=== PATIENT | female | born 1945 ===

== ENCOUNTER 2017-05-12 15:06 | Inpatient (IN) | payer MEDICARE ==
[2017-05-12 15:39] VITALS: BMI 38.0
[2017-05-12 17:23] LABS: BASO # 0.02 K/mm3 (0.0-2.0); BASO % 0.3 % (0.0-3.0); EOS # 0.1 (0.0-0.7); EOS % 1.8 % (1.5-5.0); GRAN # 4.35 (1.4-6.5); GRAN % 58.8 % (50.0-68.0); HEMOGLOBIN 11.8 g/dL (12.0-16.0); LYMPH # 2.4 (1.2-3.4); LYMPH % 32.5 % (22.0-35.0); MEAN CELL VOLUME 89.1 fl (80.0-105.0); MEAN CORPUSCULAR HEMOGLOBIN 28.6 pg (25.0-35.0); MEAN CORPUSCULAR HGB CONC 32.2 g/dl (31.0-37.0); MEAN PLATELET VOLUME 10.6 fl (7.0-11.0); MONO # 0.5 (0.1-0.6); MONO % 6.6 % (1.0-6.0); RBC 4.12 10^6/uL (3.5-6.1); RED CELL DISTRIBUTION WIDTH 13.2 % (11.5-14.5); URINE APPEARANCE CLEAR (CLEAR); URINE BILIRUBIN NEGATIVE (NEGATIVE); URINE BLOOD NEGATIVE (NEGATIVE); URINE COLOR YELLOW (YELLOW); URINE GLUCOSE (UA) NEGATIVE (NEGATIVE); URINE LEUKOCYTE ESTERASE SMALL Leu/uL (NEGATIVE); URINE PROTEIN NEGATIVE mg/dL (<30 mg/dL); URINE UROBILINOGEN 0.2 E.U./dL (<1 E.U./dL); WHITE BLOOD COUNT 7.4 10^3/ul (4.5-11.0)
[2017-05-12] MEDS ORDERED: Morphine 5 MG/ML SYRINGE IVP STA (17:29)
[2017-05-12] MEDS ORDERED: MethylPREDNISolone 40 mg Vial IVP STA (17:29)
[2017-05-12 17:31] LABS: ALB/GLOB RATIO 1.3 (1.1-1.8); ALBUMIN 4.2 g/dL (3.0-4.8); ALT/SGPT 33 U/L (7-56); AST/SGOT 24 U/L (14-36); BLOOD UREA NITROGEN 23 mg/dL (7-21); CALCIUM 10.1 mg/dL (8.4-10.5); GFR AFRICAN-AMERICAN > 60; GFR NON-AFRICAN AMERICAN > 60
--- NOTE | 2017-05-12 17:33 | ED PDOC ---
Arrival/HPI - General Chief Complaint: Back Pain Time Seen by Provider: 05/12/17 16:02 Historian: Patient - History of Present Illness Narrative History of Present Illness (Text): 05/12/17 17:41 71yo female with PMHx of hypothyroid, hypertension and diabetes who was referred to ED by Dr. Pearl for admission. The daughter by the bedside states patient started having neck pain a month ago and was seen at a hospital in [facility]. she presented a copy of the cervical spine CT result that showed Lytic lesion and pathologic fracture of C4. Patient have on a cervical spine. She was referred to ED by Dr. Pearl for admission secondary to the CT findings. Pt denies any focal weakness, paresthesia, headache, dizziness, any other complaint. Past Medical History - Provider Review Nursing Documentation Reviewed: Yes - Cardiac Hx Hypertension: Yes - Pulmonary Hx Respiratory Disorders: No - Neurological Hx Neurological Disorder: No - HEENT Hx HEENT Disorder: No - Renal Hx Renal Disorder: No - Endocrine/Metabolic Hx Diabetes Mellitus Type 2: Yes Hx Hypothyroidism: Yes - Hematological/Oncological Hx Blood Disorders: No - Integumentary Hx Dermatological Disorder: No - Musculoskeletal/Rheumatological Hx Musculoskeletal Disorders: No - Gastrointestinal Hx Gastrointestinal Disorders: No - Genitourinary/Gynecological Hx Genitourinary Disorders: No - Psychiatric Hx Psychophysiologic Disorder: No Hx Substance Use: No - Surgical History Hx Section: Yes Hx Cholecystectomy: Yes Family/Social History - Physician Review Nursing Documentation Reviewed: Yes Family/Social History: Unknown Family HX Smoking Status: Never Smoked Hx Alcohol Use: No Hx Substance Use: No Allergies/Home Meds Allergies/Adverse Reactions: Allergies No Known Allergies Allergy (Verified 05/12/17 15:39) Home Medications: Home Meds Medication Instructions Recorded Confirmed GlipiZIDE [Glucotrol] 5 mg PO DAILY 05/12/17 05/12/17 Levothyroxine [Synthroid] 100 mcg PO DAILY 05/12/17 05/12/17 Losartan [Cozaar] 100 mg PO DAILY 05/12/17 05/12/17 Metoprolol Succinate [Toprol Xl] 50 mg PO DAILY 05/12/17 05/12/17 Review of Systems - Physician Review All systems were reviewed & negative as marked: Yes - Review of Systems Constitutional: Normal Eyes: Normal ENT: Normal Respiratory: Normal Cardiovascular: Normal Gastrointestinal: Normal Genitourinary Female: Normal Musculoskeletal: Neck Pain Skin: Normal Neurological: Normal Endocrine: Normal Hemo/Lymphatic: Normal Psychiatric: Normal Physical Exam Vital Signs Reviewed: Yes Vital Signs Temp Pulse Resp BP Pulse Ox 05/12/17 19:14 68 17 161/70 H 99 05/12/17 17:30 64 18 158/72 H 100 05/12/17 16:55 65 18 168/65 H 100 05/12/17 15:43 98.0 F 67 20 172/61 H 99 05/12/17 15:39 98.0 F 67 19 172/61 H 100 Temperature: Afebrile Blood Pressure: Normal Pulse: Regular Respiratory Rate: Normal Appearance: Positive for: Well-Appearing, Non-Toxic, Comfortable Pain Distress: None Mental Status: Positive for: Alert and Oriented X 3 - Systems Exam Head: Present: Atraumatic, Normocephalic Pupils: Present: PERRL Extroacular Muscles: Present: EOMI Conjunctiva: Present: Normal Mouth: Present: Moist Mucous Membranes Neck: Present: MIDLINE TENDERNESS, Paraspinal Tenderness. No: Normal Range of Motion (Unable to asses, pt on brace ) Respiratory/Chest: Present: Clear to Auscultation, Good Air Exchange. No: Respiratory Distress, Accessory Muscle Use Cardiovascular: Present: Regular Rate and Rhythm, Normal S1, S2. No: Murmurs Abdomen: Present: Normal Bowel Sounds. No: Tenderness, Distention, Peritoneal Signs Back: Present: Normal Inspection Upper Extremity: Present: Normal Inspection. No: Cyanosis, Edema Lower Extremity: Present: Normal Inspection. No: Edema Neurological: Present: GCS=15, CN II-XII Intact, Speech Normal Skin: Present: Warm, Dry, Normal Color. No: Rashes Psychiatric: Present: Alert, Oriented x 3, Normal Insight, Normal Concentration Medical Decision Making ED Course and Treatment: 05/12/17 19:[address] Pearl and he requested admission of pt to Dr. zimmerman's service and some blood work (Serum protein electrophoresis, Immune fixation, [place] lambda, LDH, Beta microglobulin) Pt had a copy of his cervical CT from 05/05/17 that show pathologic fracture and lesion of C$ Case as DW Dr. zimmerman and pt was admitted Pt's pain was controlled in ED. - Lab Interpretations Lab Results: 05/12/17 16:32 03/16/18 16:32 Lab Results 05/12/17 16:32: Lactate Dehydrogenase 620 05/12/17 16:32: Sodium 144, Potassium 4.5, Chloride 105, Carbon Dioxide 28, Anion Gap 16, BUN 23 H, Creatinine 0.9, Est GFR ( Amer) > 60, Est GFR ( Non-Af Amer) > 60, Random Glucose 133 H, Calcium 10.1, Magnesium 1.9, Total Bilirubin 0.5, AST 24, ALT 33, Alkaline Phosphatase 55, Total Protein 7.5, Albumin 4.2, Globulin 3.3, Albumin/Globulin Ratio 1.3 05/12/17 16:32: Urine Color Yellow, Urine Appearance Clear, Urine pH 6.0, Ur Specific Roberta 1.010, Urine Protein Negative, Urine Glucose (UA) Negative, Urine Ketones Negative, Urine Blood Negative, Urine Nitrate Negative, Urine Bilirubin Negative, Urine Urobilinogen 0.2, Ur Leukocyte Esterase Small H, Urine RBC 0 - 2, Urine WBC 2 - 5, Ur Epithelial Cells 1 - 3 05/12/17 16:32: PT 11.5, INR 1.01, APTT 27.0 05/12/17 16:32: WBC 7.4, RBC 4.12, Hgb 11.8 L, Hct 36.7, MCV 89.1, MCH 28.6, MCHC 32.2, RDW 13.2, Plt Count 203, MPV 10.6, Gran % 58.8, Lymph % (Auto) 32.5, Blair % (Auto) 6.6 H, Eos % (Auto) 1.8, Baso % (Auto) 0.3, Gran # 4.35, Lymph # ( Auto) 2.4, Blair # (Auto) 0.5, Eos # (Auto) 0.1, Baso # (Auto) 0.02 - Medication Orders Current Medication Orders: Discontinued Medications Methylprednisolone (Solu-Medrol) 40 mg IVP STAT STA Stop: 05/12/17 17:30 Last Admin: 05/12/17 17:40 Dose: 40 mg IVP Administration Document 05/12/17 17:40 SF (Rec: 05/12/17 19:17 [email or web address] Charges for Administration # of IVP Administrations 1 Morphine Sulfate (Morphine) 5 mg IVP STAT STA Stop: 05/12/17 17:30 Last Admin: 05/12/17 17:40 Dose: 5 mg IVP Administration Document 05/12/17 17:40 SF (Rec: 05/12/17 19:17 [email or web address] Charges for Administration # of IVP Administrations 1 Disposition/Present on Arrival - Present on Arrival Any Indicators Present on Arrival: No History of DVT/PE: No History of Uncontrolled Diabetes: No Urinary Catheter: No History of Decub. Ulcer: No History Surgical Site Infection Following: None - Disposition Have Diagnosis and Disposition been Completed?: Yes Diagnosis: Pathologic fracture of cervical vertebra, Lytic lesion of bone on x-ray Disposition: HOSPITALIZED Disposition Time: 17:50 Patient Plan: Admission Patient Problems: Current Active Problems Problem Status Onset Lytic lesion of bone on x-ray Acute Pathologic fracture of cervical vertebra Acute Condition: FAIR
[2017-05-12 17:38] LABS: INR 1.01 (0.93-1.08); PROTHROMBIN TIME 11.5 SECONDS (9.4-12.5)
[2017-05-12 17:42] LABS: URINE RBC 0 - 2 /hpf (0-2)
[2017-05-13 02:09] LABS: CREATININE,RANDOM URINE 42 mg/dL
[2017-05-13 02:13] LABS: URINE BILIRUBIN NEGATIVE (NEGATIVE); URINE BLOOD NEGATIVE (NEGATIVE); URINE GLUCOSE (UA) >=1000 mg/dL (NEGATIVE); URINE LEUKOCYTE ESTERASE NEGATIVE Leu/uL (NEGATIVE); URINE PROTEIN NEGATIVE mg/dL (<30 mg/dL); URINE UROBILINOGEN 0.2 E.U./dL (<1 E.U./dL)
[2017-05-13 02:14] LABS: TOTAL PROTEIN,RANDOM URINE 9 mg/L
[2017-05-13 02:15] LABS: URINE APPEARANCE CLEAR (CLEAR); URINE COLOR YELLOW (YELLOW)
[2017-05-13] MEDS ORDERED: Metoprolol Succinate 50 mg XL Tab PO ONE (05:48)
[2017-05-13] MEDS: Levothyroxine 100 MCG TAB PO SCH (05:53)
[2017-05-13] MEDS: Insulin Reg-LOW-Coverage SC SCH ×2 (08:11→17:14)
[2017-05-13 08:35] LABS: HEMOGLOBIN 12.8 g/dL (12.0-16.0); MEAN CELL VOLUME 88.3 fl (80.0-105.0); MEAN CORPUSCULAR HEMOGLOBIN 28.9 pg (25.0-35.0); MEAN CORPUSCULAR HGB CONC 32.7 g/dl (31.0-37.0); MEAN PLATELET VOLUME 10.8 fl (7.0-11.0); RBC 4.43 10^6/uL (3.5-6.1); WHITE BLOOD COUNT 8.6 10^3/ul (4.5-11.0)
[2017-05-13 08:46] LABS: MCH 28.9 pg (27.0-33.0); MCV 89.3 fL (80.0-100.0)
[2017-05-13 09:13] LABS: ALB/GLOB RATIO 1.2 (1.1-1.8); ALBUMIN 4.4 g/dL (3.0-4.8); ALT/SGPT 32 U/L (7-56); AST/SGOT 26 U/L (14-36); BLOOD UREA NITROGEN 23 mg/dL (7-21); CALCIUM 10.6 mg/dL (8.4-10.5); GFR AFRICAN-AMERICAN > 60; GFR NON-AFRICAN AMERICAN > 60
--- NOTE | 2017-05-13 10:35 | CARD ---
APPROVED REPORT EKG Measurement Heart [id number] <Conclusion> Sinus bradycardia Q in 3
--- NOTE | 2017-05-13 13:55 | CT ---
PROCEDURE: CT Cervical Spine without contrast HISTORY: <fx C4?> COMPARISON: None available. TECHNIQUE: Axial computed tomography images were obtained of the cervical spine without the use of intravenous contrast. Coronal and sagittal reformatted images were created and reviewed. Radiation dose: Total exam DLP = 632.46 mGy-cm. This CT exam was performed using one or more of the following dose reduction techniques: Automated exposure control, adjustment of the mA and/or kV according to patient size, and/or use of iterative reconstruction technique. FINDINGS: VERTEBRAE: There is a lytic bony lesion at C4 vertebral body extending slightly into the right pedicle and associated with moderate to severe compression deformity of C4 vertebral body. Heterogeneous density noted in the rest of the visualized osseous structure without evidence of discrete lytic or sclerotic bony lesion. DISCS/SPINAL CANAL/NEURAL FORAMINA: Moderate degenerative changes noted at the cervical spine. There is a small bone retropulsion noted at C4 without evidence of significant spinal stenosis. Narrowing of the disc is space noted more prominent at C5-C6 and C6-C7. PARASPINAL SOFT TISSUES: Unremarkable. OTHER FINDINGS: None. IMPRESSION: Lytic bony lesions seen at C4 associated with CV compression deformity of C4 vertebral body. Heterogeneous density of the osseous structure without evidence of other lytic or sclerotic bony lesion.
[2017-05-14] MEDS: Oxycodone/Acetaminophen 5/325 mg Tab PO PRN (02:06)
--- NOTE | 2017-05-14 02:34 | HP ---
DATE OF EXAM: 05/13/2017 CHIEF COMPLAINT AND HISTORY OF PRESENT ILLNESS: This is a 71-year-old female who is coming in to the hospital with past medical history of hypothyroidism, hypertension and diabetes. She was sent by her primary care doctor because of neck pain. The patient states that she had [place], in [facility] and was having neck pain. The patient says that she went to the hospital there and had evaluation with a spine CT that showed a lytic lesion. The patient was found to have a pathologic fracture at C4 on the cervical spine film. The patient was referred to Dr. Pearl for evaluation, a local oncologist. The patient was admitted for further evaluation. The patient denies any paresthesias. No numbness or tingling. The pain is mostly centered in the neck area. She has no fevers or chills. She has no dysuria or frequency. No nocturia. No abdominal pain. No chest pain, shortness of breath. REVIEW OF SYMPTOMS: All other review of symptoms is within normal limits except that was mentioned. She has limited range of motion of the neck because of her pain. ALLERGIES: NO KNOWN DRUG ALLERGIES. HOME MEDICATIONS: Glucotrol, Synthroid, Cozaar, Toprol. PAST MEDICAL HISTORY: Diabetes type 2, hypothyroidism, hypertension. PAST SURGICAL HISTORY: . FAMILY HISTORY: Noncontributory. SOCIAL HISTORY: She does not smoke, drink or use drugs. PHYSICAL EXAMINATION: VITAL SIGNS: Her temperature is 98, pulse is 67, blood pressure is 172/61. Height is 5 feet 4 inches. Weight is 222 pounds. BMI is 38.1. GENERAL: The patient lying in bed, uncomfortable, and in no acute distress. HEENT: Atraumatic and normocephalic. Anicteric sclerae. Moist mucosa. [place] conjunctivae. No oral lesions. NECK: No JVD, anterior and posterior adenopathy, thyromegaly, or bruits. CARDIOVASCULAR: S1 and S2 regular. No murmur, rubs, or gallop. LUNGS: Clear to auscultation bilaterally. No wheezes, rales, or rhonchi. ABDOMEN: Bowel sounds are positive. Soft, nontender and nondistended. No hepatosplenomegaly. No rebound and no guarding EXTREMITIES: No cyanosis, clubbing, or edema. NEUROLOGIC: No facial asymmetry. Tongue is midline. No uvula deviation. Power is 5/5 upper extremity and lower extremity. Sensation intact in upper extremity and lower extremity. PSYCHIATRIC: She is awake, alert and oriented x3. No anxiety or depression. She has normal affect. GENITOURINARY: No CVA tenderness. VASCULAR: 2+ pulses in the carotid pulses and pedal pulses. SKIN: No erythema or nodules SPINE: Shows normal curvature. LABORATORY DATA: Have been reviewed. Hemoglobin is 11.8. Chemistry shows creatinine of 0.9. She has a calcium of 10.6. She has a beta-2 microglobulin, it is 3.3. The patient has urine that shows minimal protein by protein creatinine ratio. She has negative nitrites and bilirubin . Her cervical spine CT done shows that there is a lytic bone lesion seen at C4 associated with compression deformity. EKG shows sinus bradycardia at 57 with QTc of 406. ASSESSMENT: 1. Neck pain secondary to C4 lytic lesion. 2. Diabetes type 2. 3. Hypothyroidism. 4. Hypercalcemia. PLAN: The patient is going to be admitted to the hospital. She is going to be seen by Neurosurgery and Neurology for consultation. I have asked Dr. Hernandez to see the patient, but he does not take care of patients with spine fractures. The patient on losartan for her hypertension. She is going to be on Glucotrol for her diabetes. She is on Synthroid for her hypothyroidism. We will check her TSH. She will also need urine electrophoresis and serum electrophoresis and we will also get PTH and Vitamin D level to evaluate for her hypercalcemia. Concerned that the patient has myeloma as the cause, she does have elevated calcium and lytic lesion in the bones. She does not have any proteinuria or acute kidney disease. I did speak to the patient's family at the bedside to give them an update on the patient's diagnoses and plan of care. We will await input from the consultants. I did speak to Dr. Pearl about the case. Chilo Magallanes MD
[2017-05-14] MEDS: Levothyroxine 100 MCG TAB PO SCH (05:46)
[2017-05-14] MEDS: Insulin Reg-LOW-Coverage SC SCH ×2 (07:58→17:28)
[2017-05-14] MEDS: Metoprolol Succinate 50 mg XL Tab PO SCH (10:29)
[2017-05-14] MEDS ORDERED: Gadodiamide 287 MG/ML VIAL (15ML) IV ONE (11:35)
[2017-05-14] MEDS: POLYETHYLENE GLYCOL 3350 17 GM/Dose PACKET PO SCH ×2 (13:16→17:48)
--- NOTE | 2017-05-14 15:10 | PN ---
DATE: 05/14/2017 SUBJECTIVE: The patient has no complaints of any chest pain. No shortness of breath. No headaches. She says she does have a right arm weakness that has been present for the past 3 days. PHYSICAL EXAMINATION: VITAL SIGNS: Temperature is 98.5, pulse is 65, blood pressure is 172/62, respirations 18. GENERAL: The patient is lying in bed, flat, comfortable. HEENT: No oral lesion. Anicteric sclerae. Moist mucosa. NECK: No JVD, adenopathy, or thyromegaly. CARDIOVASCULAR: S1 and S2, regular. No murmurs, rubs, or gallops. LUNGS: Clear to auscultation bilaterally. No wheeze, rales, or rhonchi. ABDOMEN: Bowel sounds are positive, soft, nontender and nondistended. EXTREMITIES: No cyanosis, clubbing or edema. LABORATORY DATA: White count of 8.6, hemoglobin 12.8. She has a bone density survey that is pending. The patient has hemoglobin of 12.8. Serology is pending. The patient has 25-vitamin D of 38. ASSESSMENT: 1. Lytic bone lesion of C4 with compression deformity. 2. Diabetes type 2. 3. Hypothyroidism. 4. Hypercalcemia. PLAN: The patient is currently comfortable, is going to be continued on her Cozaar for hypertension. She is on glipizide for diagnoses. The patient has Synthroid for hypothyroidism. The patient has MRI of the spine that is pending. I will place the patient on MiraLax because she is complaining of constipation. Chilo Magallanes MD
--- NOTE | 2017-05-14 20:02 | MRI ---
EXAM: MR Cervical Spine Without and With Intravenous Contrast EXAM DATE/TIME: 05/14/2017 8:00 AM CLINICAL HISTORY: 71 years old, female; Condition or disease; Other: Fracture; Additional info: Pathological fracture C4. TECHNIQUE: Magnetic resonance images of the cervical spine without and with intravenous contrast in multiple planes. CONTRAST: 15 mL of optimark administered intravenously. COMPARISON: Recent cervical spine CT, 05/13/2017, 12:53 PM FINDINGS: LIMITATIONS: Mild to moderate streak/motion artifact. VERTEBRAE: As seen on the recent cervical spine CT, there is a compression fracture of C4, associated with marked (50-75%) vertebral height loss/flattening and mild vertebral retropulsion. There is decreased T1 and increased T2 signal throughout the C4 vertebra, associated with diffuse enhancement postcontrast, highly suspicious for a neoplastic lesion. Best seen on image 6 of series 7, there is a suspected additional smaller, round lesion with similar signal characteristics and enhancement pattern in the C7 vertebra anteriorly and on the right, which measures 5 mm, and is suspicious for an additional neoplastic lesion. No evidence of diffuse vertebral lesions. No evidence of significant vertebral subluxation. SPINAL CORD: No evidence of significant signal abnormality in the spinal cord. No abnormal enhancement. SOFT TISSUES: No acute abnormality identified DISCS/SPINAL CANAL/NEURAL FORAMINA: C2-C3: No evidence of significant spinal canal stenosis. C3-C4: Mild retropulsion of the C4 vertebra, causing effacement of the thecal sac, but no significant spinal canal stenosis. C4-C5: Mild retropulsion of the C4 vertebra, causing effacement of the thecal sac, but no significant spinal canal stenosis. C5-C6: Mild central posterior disc bulge, causing effacement of the ventral thecal sac. No evidence of significant spinal canal stenosis. C6-C7: Broad-based posterior disc bulge, eccentric to the left, causing mild stenosis of the left lateral recess of the spinal canal . C7-T1: No evidence of significant spinal canal stenosis. IMPRESSION: - Enhancing lesion throughout the C4 vertebra, causing a pathologic compression fracture. Suspect a second small enhancing lesion within the C7 vertebra anteriorly and on the right. On the recent cervical spine, the C4 lesion was lytic in nature. The main differential considerations include lytic bony metastases and multiple myeloma. Further workup is recommended. - See above for remaining findings.
[2017-05-15] MEDS: Oxycodone/Acetaminophen 5/325 mg Tab PO PRN ×2 (04:52→13:57)
[2017-05-15] MEDS: Levothyroxine 100 MCG TAB PO SCH (05:20)
[2017-05-15 05:56] LABS: HEMOGLOBIN A 96.7 Percent (>96.0); HEMOGLOBIN A2 2.3 Percent (1.8-3.5)
--- NOTE | 2017-05-15 08:23 | CON ---
DATE: 05/14/2017 This is a 71-year-old [place]-speaking woman who does understand some [place]ian who was admitted to the Emergency Room with complaint of neck pain. She had a CT scan about approximately a month ago, showed a lytic lesion at C4 with loss of vertebral height. On admission, she had a repeat CT scan showing at least 50% C4 vertebral body compression fracture and there appeared to be a small lucent dot in C7. An MRI suggests enhancement within the C4 vertebral body and there is a suspicious 5-mm lesion in C7. There is no evidence of cord compression or intrinsic spinal cord pathology. At the present time, she complains of neck pain localized to the neck radiating into the right shoulder. She reports that, for the last 5 days or so, she is unable to lift the right arm at the shoulder. She denies any numbness, tingling, paresthesias. She denies any weakness anywhere else. She denies any significant past medical history with the exception of diabetes, hypertension and hypothyroid. Her exam finds that she has good strength throughout exception being 0/5 in the deltoid on the right. She has no sensory deficit to pin and touch. Reflexes are 1/4. She has no clonus, no Babinski, no Catina sign. At this point, it appears that she has a pathologic compression fracture of C4. This is, by definition, unstable and requires fixation/fusion. It most likely that this is caused by metastatic disease as the most likely underlying pathology. I had a lengthy conversation with her as well as her daughter, Liz, today and we discussed various options, particularly C4 corpectomy with fusion and fixation. I explained in detail what the operation was along with the risks associated with it. I explained the risks associated with not operating. I explained to her that deltoid on the right would possibly return with surgery; however, no guarantees were offered and I told her that if return of function was to occur, it may be several months before we see any improvement. I did explain the possibility of bleeding and from this, I did explain that there is underlying pathology, which may be elucidated via metastatic workup, which should be undertaken before surgery. I told her in detail the risks associated with the surgery including the risk of paralysis neurologic deficit. Both the patient and the daughter understood and wishes to proceed. She will proceed with metastatic workup, hopefully, tomorrow and we will get her on the OR schedule probably for Monday or Monday. I told her to wear her in the interim. Lastly, since she has an unstable neck, it would be ill-advice for her to be discharged prior to surgery. Hopefully, she will be medically cleared for Monday or Monday surgery. Deepak Garcia MD
--- NOTE | 2017-05-15 08:31 | CON ---
DATE: 05/14/2017 HISTORY OF PRESENT ILLNESS: This is a 71-year-old female with a past medical history of hypertension, hypothyroidism and diabetes. Patient was in [place] and complain of having a neck pain. CAT scan of the head was done, which shows pathological C4 fracture and referred to Dr. Pearl, oncologist. Denies any numbness, tingling in the arms, legs or face. No weakness. REVIEW OF SYSTEMS: Ten-point review of system was negative. ALLERGIES: NO KNOWN DRUG ALLERGIES. PHYSICAL EXAMINATION: HEENT: Normocephalic, atraumatic. NECK: Supple. Patient has a neck collar. NEUROLOGIC: Cranial nerve II through XII were tested. Pupils reactive. EOM intact. Visual field full. No facial asymmetry. Tongue midline. Motor examination: Moves all the extremities equally. Strength 5/5. Tone normal. Deep tendon reflexes 1+. Both plantars are downgoing. Sensory appears intact. Cerebellar, gait normal. IMPRESSION: Neck pain, possibly secondary to C4 lytic lesions and also complaints of diabetes, hypothyroidism and hypercalcemia. Neurosurgeon was called and workup is going on, and we will follow up. Alf Germain MD
[2017-05-15] MEDS: Insulin Reg-LOW-Coverage SC SCH ×2 (08:32→16:39)
[2017-05-15 08:51] LABS: BASO # 0.03 K/mm3 (0.0-2.0); BASO % 0.4 % (0.0-3.0); EOS # 0.1 (0.0-0.7); EOS % 1.8 % (1.5-5.0); GRAN # 4.01 (1.4-6.5); GRAN % 56.3 % (50.0-68.0); HEMOGLOBIN 13.1 g/dL (12.0-16.0); LYMPH # 2.6 (1.2-3.4); MEAN CELL VOLUME 88.7 fl (80.0-105.0); MEAN CORPUSCULAR HEMOGLOBIN 29.5 pg (25.0-35.0); MEAN CORPUSCULAR HGB CONC 33.2 g/dl (31.0-37.0); MEAN PLATELET VOLUME 10.2 fl (7.0-11.0); MONO # 0.4 (0.1-0.6); MONO % 5.5 % (1.0-6.0); RBC 4.44 10^6/uL (3.5-6.1); RED CELL DISTRIBUTION WIDTH 13.4 % (11.5-14.5); WHITE BLOOD COUNT 7.1 10^3/ul (4.5-11.0)
[2017-05-15 09:49] LABS: BLOOD UREA NITROGEN 26 mg/dL (7-21); CALCIUM 10.4 mg/dL (8.4-10.5); GFR AFRICAN-AMERICAN > 60; GFR NON-AFRICAN AMERICAN > 60
[2017-05-15] MEDS: POLYETHYLENE GLYCOL 3350 17 GM/Dose PACKET PO SCH ×3 (10:13→17:53)
[2017-05-15] MEDS: Metoprolol Succinate 50 mg XL Tab PO SCH (10:14)
--- NOTE | 2017-05-15 10:22 | RAD ---
PROCEDURE: Bone survey complete HISTORY: lytic lesion COMPARISON: CT of the cervical spine 05/13/2017 TECHNIQUE: A complete bone survey was performed FINDINGS: The CT scan showed a lytic lesion the C4 level. The C-spine was not included on the bone survey. There are no other lytic lesions demonstrated. IMPRESSION: No lytic lesions demonstrated
--- NOTE | 2017-05-15 11:16 | PN ---
DATE: 05/15/2017 SUBJECTIVE: The patient has no complaints of any chest pain. No shortness of breath. No headaches. PHYSICAL EXAMINATION: VITAL SIGNS: Temperature is 98.3, pulse of 82, blood pressure is 163/70, respirations 18. GENERAL: The patient is lying in bed, flat, comfortable. HEENT: No oral lesion. Anicteric sclerae. Moist mucosa. NECK: No JVD, adenopathy, or thyromegaly. CARDIOVASCULAR: S1 and S2, regular. No murmurs, rubs, or gallops. LUNGS: Clear to auscultation bilaterally. No wheeze, rales, or rhonchi. ABDOMEN: Bowel sounds are positive, soft, nontender and nondistended. EXTREMITIES: No cyanosis, clubbing or edema. LABORATORY DATA: Have been reviewed. Cervical MRI done shows enhancing lesion in C4 vertebra causing a pathologic compression fracture, suspect a second small enhancing lesion at C7. ASSESSMENT: 1. C4 lytic lesion with pathologic compression fracture. 2. Probable C7 vertebral abnormality. 3. Diabetes type 2. 4. Hypothyroidism. 5. Hypercalcemia. PLAN: The patient is currently comfortable. She is most likely going to the surgery. I did speak to Dr. Garcia. The patient is going to be scheduled this week. I did speak to Dr. Pearl who is following the case. I also spoke with Dr. Germain. The patient's family is at the bedside and does understand the patient had blood pressure that is uncontrolled. I will increase the patient's blood pressure medications. The patient is on a heart-healthy diet. Chilo Magallanes MD
[2017-05-15] MEDS: Sodium Chloride 0.45% 1,000 ML IV SCH (13:17)
[2017-05-15 13:53] LABS: HEMOGLOBIN 12.7 g/dL (12.0-16.0); MEAN CELL VOLUME 89.1 fl (80.0-105.0); MEAN CORPUSCULAR HEMOGLOBIN 29.4 pg (25.0-35.0); MEAN PLATELET VOLUME 10.3 fl (7.0-11.0); RBC 4.32 10^6/uL (3.5-6.1); RED CELL DISTRIBUTION WIDTH 13.3 % (11.5-14.5); WHITE BLOOD COUNT 9.5 10^3/ul (4.5-11.0)
[2017-05-15 14:01] LABS: INR 1.08 (0.93-1.08); PARTIAL THROMBOPLASTIN TIME 29.6 Seconds (25.1-36.5); PROTHROMBIN TIME 12.4 SECONDS (9.4-12.5)
[2017-05-15 14:10] LABS: ALB/GLOB RATIO 1.2 (1.1-1.8); ALBUMIN 4.1 g/dL (3.0-4.8); ALT/SGPT 24 U/L (7-56); AST/SGOT 20 U/L (14-36); BLOOD UREA NITROGEN 28 mg/dL (7-21); GFR AFRICAN-AMERICAN > 60; GFR NON-AFRICAN AMERICAN > 60
--- NOTE | 2017-05-15 16:16 | PN ---
DATE: 05/15/2017 NEUROLOGY FOLLOWUP CHIEF COMPLAINT: Follow up for neck pain. SUBJECTIVE: The patient is seen and examined in the bedside. She complained of neck pain localizing to the right shoulder and difficulty in raising the right shoulder. Her MRI of the cervical spine showed enhancing lesion through the C4 causing a pathological compression fracture and a suspicious secondary small enhancing lesion in the C7 vertebra anteriorly on the right. These lytic lesions are most likely consistent with multiple myeloma, though workup is ongoing. Neurosurgery has seen the patient and recommended surgery for tomorrow. No acute events overnight. Most likely, recommended also gabapentin 300 at bedtime for neuropathic relief. PAST MEDICAL HISTORY: History of hypothyroidism, hypercalcemia, type 2 diabetes mellitus. REVIEW OF SYSTEMS: Fourteen-point review of systems is negative except as per the HPI. ALLERGIES: NO KNOWN DRUG ALLERGIES. FAMILY HISTORY: Noncontributory. PHYSICAL EXAMINATION: VITAL SIGNS: Temperature 98.3, pulse rate of 82, blood pressure 153/55, respiratory rate of 18, oxygen saturation 98% by room air. GENERAL: The patient is sitting up at the edge of the bed, in no acute distress. HEENT: Atraumatic, normocephalic. PERRLA. Extraocular muscles intact. NECK: Supple. No JVD. No adenopathy noted. LUNGS: Clear to auscultation. No adventitious sounds. HEART: S1, S2. Normal rate and rhythm. No murmurs, rubs or gallops. ABDOMEN: Soft, nontender and nondistended. Bowel sounds are present. EXTREMITIES: No clubbing. No cyanosis. Peripheral pulses 2+ felt bilaterally. NEUROLOGIC: The patient is alert, oriented to person, place, month and year. Speech is fluent without any errors. Cranial nerves II through XII intact. Motor exam: Moves all extremities equally except for 0/5 in the deltoid on the right. Sensory exam: Light touch, pinprick, proprioception and vibration are intact. DTRs are 1+ throughout. Coordination: [id number] intact. No dysmetria noted. Gait is deferred for now. LABORATORY DATA: There is elevated beta-2 microglobulinemia of 3.34. Sodium is 141, potassium 4.3, chloride of 101, carbon dioxide of 32, BUN of 28, creatinine 0.8, random glucose 172. ASSESSMENT AND PLAN: This is a 71-year-old woman with history of hypertension, hypothyroidism, type 2 diabetes mellitus, complaining of neck pain radiating down to the right shoulder, found to have an enhancing lesion throughout the C4 vertebral body causing a pathological fracture with suspected second small enhancing lesion within the C7 vertebra. The lesion is likely lytic in nature and has elevated beta-2 microglobulin level of 3.34 and is being evaluated for a possible multiple myeloma causing pathologic fracture and likely will benefit from surgery for the pathological compression fracture since it is unstable and requires fixation and fusion and therefore Neurosurgery is possibly going to do a C4 corpectomy with fusion and fixation. At this time, we will recommend, 1. Follow up with Neurosurgery's recommendations. 2. We will give gabapentin 300 mg p.o. at bedtime for neuropathic relief. 3. The patient will require a workup for multiple myeloma by Oncology. 4. Continue with physical therapy. Once again, thank you for this followup. Trevor Germain MD
[2017-05-15] MEDS ORDERED: Iohexol 240 (50 ml) ONE (17:34)
[2017-05-15] MEDS ORDERED: Iohexol 350 MG/100 ML VIAL ONE (18:53)
[2017-05-15 21:00] LABS: ALBUMIN (PEP) 4.1 g/dL (3.8-4.8); ALPHA-1-GLOBULIN (PEP) 0.3 g/dL (0.2-0.3)
--- NOTE | 2017-05-15 21:50 | CT ---
EXAM: CT Chest With Intravenous Contrast CLINICAL HISTORY: 71 years old, female; Abnormal findings; Abnormal radiologic finding of the abdomen; Radiologic exam and body structure: Lytic lesion seen on CT cspine; Abnormal radiologic exam of lung or chest; Additional info: R/O mets TECHNIQUE: Axial computed tomography images of the chest with intravenous contrast. All CT scans at this facility use one or more dose reduction techniques, viz.: automated exposure control; ma/kV adjustment per patient size (including targeted exams where dose is matched to indication; i.e. head); or iterative reconstruction technique. Coronal and sagittal reformatted images were created and reviewed. CONTRAST: 100 mL of OMNI administered intravenously. COMPARISON: There are no prior studies for comparison. FINDINGS: Artifacts: Motion artifact degrades image quality. Lungs and pleural spaces: Trachea and main bronchi are patent. There is no focal consolidation. There are no pulmonary nodules. There is minimal scarring. There are no effusions. Heart and vasculature: The heart is mildly enlarged.There is fluid in pericardial recesses.Aorta and main pulmonary artery are normal in caliber. Mediastinum: There are no pathologically enlarged mediastinal or hilar nodes. There are clips in the mediastinum. There is distal esophageal wall thickening. Thyroid: Thyroid is not optimally demonstrated. Bones/joints: There are degenerative changes in the osseus structures. There is minimal wedging at T12. There are bridging osteophytes/syndesmophytes at multiple levels. There are no lytic or blastic lesions. Soft tissues: unremarkable Upper abdomen: Refer to following report for abdominal findings IMPRESSION: No focal pneumonia or pulmonary nodule; distal esophageal wall thickening difficult to further characterize; mediastinal clips; minimal wedging at T12, no lytic or blastic lesions identified Additional nonemergent findings as described above. EXAM: CT Abdomen and Pelvis With Intravenous Contrast EXAM DATE/TIME: 05/15/2017 4:56 PM CLINICAL HISTORY: 71 years old, female; Abnormal findings; Abnormal radiologic finding of the abdomen; Radiologic exam and body structure: Lytic lesion seen on CT cspine; Abnormal radiologic exam of lung or chest; Additional info: R/O mets TECHNIQUE: Axial computed tomography images of the abdomen and pelvis with intravenous contrast. All CT scans at this facility use one or more dose reduction techniques, viz.: automated exposure control; ma/kV adjustment per patient size (including targeted exams where dose is matched to indication; i.e. head); or iterative reconstruction technique. Coronal and sagittal reformatted images were created and reviewed. CONTRAST: 100 mL of OMNI administered intravenously. COMPARISON: There are no prior studies for comparison. FINDINGS: Lower thorax: Refer to prior report for chest findings ABDOMEN: Liver: unremarkable Gallbladder and bile ducts: Gallbladder is absent. Common duct is mildly dilated. There is minimal intrahepatic biliary ductal dilatation Pancreas: Pancreas is mildly atrophic. Spleen: Spleen is unremarkable. There is an accessory spleen in the left upper quadrant. Adrenals: unremarkable Kidneys and ureters: There are low attenuation renal lesions too small to characterize. There is left renal cyst. Kidneys and ureters are otherwise unremarkable. Stomach and bowel: Stomach is distended with contrast and air. Rotation is normal. There is no small bowel obstruction. Terminal ileum is unremarkable. Appendix is not visualized. There is no pericecal inflammation. There is moderate stool in the colon. There is diverticulosis. Appendix: See stomach and bowel PELVIS: Bladder: unremarkable Reproductive: Uterus and adnexal structures are unremarkable. ABDOMEN and PELVIS: Intraperitoneal space: There is no free air or free fluid. Bones/joints: There are degenerative changes in the osseus structures. Soft tissues: unremarkable Vasculature: Vascular structures are unremarkable. Lymph nodes: There is no para-aortic adenopathy. There are small upper mesenteric nodes. IMPRESSION: Dilated duct status post cholecystectomy; no acute solid visceral or bowel abnormality; diverticulosis without CT findings of diverticulitis
--- NOTE | 2017-05-16 00:40 | CON ---
DATE: 05/15/2017 HISTORY OF PRESENT ILLNESS: Ms. Bess is a 71-year-old female admitted with neck pain. She had CAT scan of the cervical spine done in [place], which showed lytic lesion and fracture of C4. MRI was ordered during this hospitalization, which showed enhancing lesion throughout the C4 vertebra causing pathological compression fracture and there was second small enhancing lesion in C7 vertebra. Lesion in C4 was lytic in nature. Possibility of metastatic disease. Bone survey was ordered, did not show any more lytic lesion in the bones. Serum protein electrophoresis showed M protein at 0.3 g/dL. Immunofixation showed IgG type of protein. She was evaluated by Neurology, Dr. Germain and Neurosurgery and Dr. Garcia. Plan is for spinal stabilization surgery tomorrow CAT scans did not show any mass lesion in chest, abdomen, pelvis. ALLERGIES: NO KNOWN DRUG ALLERGIES. REVIEW OF SYSTEMS: Neck pain. Weakness of the left shoulder muscle. Rest of 12-point review of systems reviewed negative. Also, she has limited range of movement on the neck. HOME MEDICATIONS: Glucotrol, Synthroid, Cozaar, Toprol. PAST MEDICAL HISTORY: Diabetes mellitus type 2, hypothyroidism, hypertension. PAST SURGICAL HISTORY: . FAMILY HISTORY: Brother had lung cancer. SOCIAL HISTORY: Nonsmoker. No history of alcohol abuse. PHYSICAL EXAMINATION: GENERAL: Comfortable in bed, in no acute distress. Neck collar in place. VITAL SIGNS: Temperature 98, heart rate is 67 per minute, blood pressure 150/70. HEENT: Pallor positive. NECK: No lymphadenopathy. CHEST: Air entry present and equal bilaterally. No added sounds. CARDIOVASCULAR: S1, S2 normal. No murmur. No gallop. ABDOMEN: Soft, nontender. No hepatosplenomegaly. EXTREMITIES: No edema. NEUROLOGIC: Alert, oriented x3. No focal sensorimotor deficit. Mild weakness on the left side of the deltoid muscle. Gait normal. SKIN: No petechiae. No rash. LABORATORY DATA: White count 9.5, hemoglobin 12.7, hematocrit 38, platelet count 232. Calcium 10.1. Sodium 144, potassium 4.5, BUN 23, creatinine 0.9. Serum protein electrophoresis showed IgG M protein at 0.3 g/dL. Beta-2 microglobulin elevated at 3.3. Tumor marker, CA19-9, CA125 negative. Liver functions within normal limit. LDH 620. Light chain assay pending. ASSESSMENT: 1. 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 2. Pathological fracture. 3. IgG myeloma protein. 4. Hypercalcemia. 5. Hypothyroidism. PLAN: Although M protein is at 0.3 g/dL, she still might have multiple myeloma. Beta-2 microglobulin is elevated. She had lytic lesion in C4. She will undergo spinal stabilization surgery by Dr. Garcia tomorrow. Likely, biopsies will be send for pathology from C4 vertebra. She will need bone marrow aspiration biopsy for definitive diagnosis of multiple myeloma. CAT scan of chest, abdomen and pelvis reviewed. No mass lesion to suggest any other type of malignancy. She has elevated blood pressure. I discussed with the staff nurse, will give hydralazine 10 mg q. 6 hours p.r.n. for systolic more than 170. She also has anxiety for surgery tomorrow. We will give Xanax 0.25 mg q. 6 hours p.r.n. I discussed at length with Mr. Butts, who is her family doctor and also a family member. Discussed the differential diagnosis of multiple myeloma or other metastatic lesion in the spine leading to pathological fracture. Workup has been thoroughly completed without any obvious malignancy. 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 Bone marrow biopsy and aspiration will be planned once she is stable and recovered from surgery. Pain control with current medications. Thank you, Dr. Magallanes for allowing us to participate in Ms. Bess' care. Sydnee Pearl MD MTDD
--- NOTE | 2017-05-16 05:17 | CON ---
DATE: 05/15/2017 REASON FOR THE CONSULTATION: Preop evaluation, risk stratification for cervical spine surgery. BRIEF CLINICAL HISTORY: This is a 71-year-old female with a past medical history of diabetes, hypertension, questionable history of an enlarged heart, being followed in [place], who has a complaint of neck pain and went to have CAT scan of the spine and found to have a pathological fracture with a lytic lesion. The patient is scheduled for a cervical spine surgery tomorrow. Cardiac consult was called for preop evaluation and risk stratification. Patient denies any chest pain, shortness of breath or any palpitation. Patient lying on the bed flat. is at the bedside. Information obtained from the daughter, Liz , telephone number [phone]. The daughter denies any chest pain, shortness of breath, any palpitations in mom. PAST MEDICAL HISTORY: Significant as mentioned. Diabetes, hypertension, hypothyroidism, hyperlipidemia, obesity, questionable history of arrhythmia. PAST SURGICAL HISTORY: Significant for cholecystectomy 2 to 3 years ago and section. FAMILY HISTORY: Noncontributory. SOCIAL HISTORY: No history of smoking or alcohol abuse. CURRENT MEDICATIONS: Patient is taking Glucotrol, Synthroid, Cozaar and Toprol. REVIEW OF SYSTEMS: As per HPI. PHYSICAL EXAMINATION: As follows, VITAL SIGNS: Temperature afebrile, heart rate , blood pressure 178/86. HEENT: PERRLA. Extraocular muscles intact. NECK: Supple. No carotid bruits or thyromegaly. CHEST: Clear to auscultation. HEART: S1 and S2 regular. ABDOMEN: Soft. EXTREMITIES: Clubbing and cyanosis negative. LABORATORY DATA: EKG shows normal sinus, poor RR progression. WBC 9.5, hemoglobin 12.7, hematocrit 38.5, platelet count 232. Chemistry shows sodium 141, potassium 4.0, chloride 101, carbon dioxide of 32, anion gap of 12, BUN 28, creatinine of 0.8. IMPRESSION AND PLAN: Pathological fracture of C4, impending paralysis. Patient is scheduled for cervical surgery tomorrow. Patient has diabetes, hypertension, and hyperlipidemia. Because of this, patient is definitely moderate risk of underlying comorbidity, but no absolute contraindication, no evidence of arrhythmia, no evidence of congestive heart failure, no evidence of ischemia. As an urgent basis, we will clear the patient to go for surgery with a moderate risk. We will follow closely. Get echo to assess left ventricular function. Continue perioperative beta janeth. Also continue losartan and p.r.n. hydralazine for systolic more than 170. We will get lipid profile, TSH, and hemoglobin A1c. We will follow with you. Thank you Dr. Magallanes for providing us the opportunity in taking care of the patient, Areli Bess. Yoko Talavera MD
[2017-05-16] MEDS: Levothyroxine 100 MCG TAB PO SCH (05:35)
[2017-05-16] MEDS: Sodium Chloride 0.45% 1,000 ML IV SCH (05:49)
[2017-05-16] MEDS: Insulin Reg-LOW-Coverage SC SCH ×2 (07:59→17:01)
--- NOTE | 2017-05-16 08:15 | CP.PCM.PN ---
Subjective - Date & Time of Evaluation Date of Evaluation: 05/16/17 Time of Evaluation: 07:00 - Subjective Subjective: Seen and examined by me and Dr. Talavera Reason for consult and follow up: cardiac evaluation/clearance for back surgery Subjective: walking to the bathroom, denies chest pain and shortness of breath Objective - Vital Signs/Intake and Output Vital Signs (last 24 hours): Temp Pulse Resp BP Pulse Ox 98.8 F 72 18 173/67 H 96 05/16/17 07:35 05/16/17 07:35 05/16/17 07:35 05/16/17 07:35 05/16/17 07:35 Intake and Output: 05/16/17 05/16/17 06:59 18:59 Intake Total 1440 Balance 1440 - Medications Medications: Current Medications Acetaminophen (Tylenol 325mg Tab) 650 mg PO Q4H PRN PRN Reason: Pain, Mild (1-3) Alprazolam (Xanax) 0.25 mg PO Q6 PRN; Protocol PRN Reason: Anxiety Stop: 05/23/17 00:01 Last Admin: 05/15/17 21:18 Dose: 0.25 mg Amlodipine Besylate (Norvasc) 10 mg PO DAILY [facility] Last Admin: 05/15/17 10:13 Dose: 10 mg Clonidine HCl (Catapres Tts1 0.1 Mg/24 Hr) 1 patch TD Q7D@1000 [facility] Gabapentin (Neurontin) 300 mg PO HS [facility] PRN Reason: Protocol Last Admin: 05/15/17 21:19 Dose: 300 mg Glipizide (Glucotrol) 5 mg PO DAILY [facility] Last Admin: 05/15/17 10:13 Dose: 5 mg Hydralazine HCl (Apresoline) 10 mg PO Q6 PRN PRN Reason: Blood pressure Hydralazine HCl (Apresoline) 10 mg IVP Q6 PRN PRN Reason: for SBP>170 Sodium Chloride (Sodium Chloride 0.45%) 1,000 mls @ 80 mls/hr IV .[id number] [facility] Last Admin: 05/16/17 05:49 Dose: 80 mls/hr Insulin Human Regular (Humulin R Low) 0 units SC ACBD [facility] PRN Reason: Protocol Last Admin: 05/16/17 07:59 Dose: Not Given Levothyroxine Sodium (Synthroid) 100 mcg PO 0600 [facility] Last Admin: 05/16/17 05:35 Dose: 100 mcg Losartan Potassium (Cozaar) 100 mg PO DAILY [facility] Last Admin: 05/15/17 10:14 Dose: 100 mg Metoprolol Succinate (Toprol Xl) 50 mg PO DAILY [facility] Last Admin: 05/15/17 10:14 Dose: 50 mg Polyethylene Glycol (Miralax) 17 gm PO BID [facility] Last Admin: 05/15/17 17:53 Dose: Not Given - Labs Labs: 05/15/17 13:40 05/15/17 13:40 PT 12.4 SECONDS (9.4-12.5) 05/15/17 13:40 INR 1.08 (0.93-1.08) 05/15/17 13:40 APTT 29.6 Seconds (25.1-36.5) 05/15/17 13:40 - Constitutional Appears: Well, No Acute Distress - Head Exam Head Exam: NORMAL INSPECTION - Neck Exam Neck Exam: Normal Inspection Additional comments: Liimited range of motion with pain - Cardiovascular Exam Cardiovascular Exam: REGULAR RHYTHM, +S1, +S2 Additional comments: no JVD - GI/Abdominal Exam GI & Abdominal Exam: Soft, Normal Bowel Sounds - Extremities Exam Extremities Exam: Full ROM, Normal Capillary Refill - Neurological Exam Neurological Exam: Alert, Awake, Normal Gait, Oriented x3 - Psychiatric Exam Psychiatric exam: Normal Affect, Normal Mood - Skin Skin Exam: Dry, Intact, Normal Color, Warm Assessment and Plan - Assessment and Plan (Free Text) Assessment: IMPRESSION: for back surgery today,pathological fracture- C4 lumbar surgery, history of diabetes,hypertension, Plan: Moderate risk for surgery Urgent case, cleared for surgery Cardiac status stable Will follow up closely post operatively Plan and treatment discussed with Dr. Talavera
[2017-05-16] MEDS: Metoprolol Succinate 50 mg XL Tab PO SCH (10:36)
[2017-05-16] MEDS: POLYETHYLENE GLYCOL 3350 17 GM/Dose PACKET PO SCH ×2 (10:52→17:01)
[2017-05-16] MEDS: Oxycodone/Acetaminophen 5/325 mg Tab PO PRN (11:44)
--- NOTE | 2017-05-16 11:55 | PN ---
DATE: SUBJECTIVE: The patient has no complaints of any chest pain. No shortness of breath, no headaches, no dizziness. PHYSICAL EXAMINATION VITAL SIGNS: Temperature is 98, pulse is 75, blood pressure 178/66, respirations 17. GENERAL: The patient is lying in bed, flat, comfortable. HEENT: No oral lesion. Anicteric sclerae. Moist mucosa. NECK: No JVD, adenopathy, or thyromegaly. CARDIOVASCULAR: S1 and S2, regular. No murmurs, rubs, or gallops. LUNGS: Clear to auscultation bilaterally. No wheeze, rales, or rhonchi. ABDOMEN: Bowel sounds are positive. Soft, nontender and nondistended. EXTREMITIES: No cyanosis, clubbing or edema. LABORATORY DATA: White count 9.5, hemoglobin 12.7. Creatinine is 0.8. CT of the chest, abdomen and pelvis done shows dilated duct, status post cholecystectomy. No acute solid visceral or bowel abnormality seen. There is diverticulosis without diverticulitis. ASSESSMENT 1. C4 lytic lesion with pathologic compression fracture. 2. Diabetes type 2. 3. Hypothyroidism. 4. Hypercalcemia. 5. C7 vertebral lesion. PLAN: The patient is currently comfortable. She is going to Surgery for stabilization of her cervical spine risk of having fracture. She is being followed by Dr. Garcia and will likely need biopsy to be done of the lytic lesion. The patient's shows that there is an M-spike that was seen. Her PTH is 39. The patient is going to be continued on IV fluids. She is on glipizide for her diabetes. She is on losartan for her hypertension. She is also on Glucotrol for her diabetes. She is on MiraLax for constipation. The patient is on Synthroid for hypothyroidism. She is on Xanax as needed. Chilo Magallanes MD
--- NOTE | 2017-05-16 22:30 | CP.PCM.PN ---
Subjective - Date & Time of Evaluation Date of Evaluation: 05/16/17 Time of Evaluation: 18:00 - Subjective Subjective: Sitting comfortably in chair. Pain controlled with current meds. On xanax for anxiety. Ambulating without difficulty. Objective - Vital Signs/Intake and Output Vital Signs (last 24 hours): Temp Pulse Resp BP Pulse Ox 97.8 F 65 20 124/58 L 97 05/16/17 14:52 05/16/17 14:52 05/16/17 14:52 05/16/17 14:52 05/16/17 14:52 Intake and Output: 05/16/17 05/17/17 18:59 06:59 Intake Total 360 480 Balance 360 480 - Medications Medications: Current Medications Acetaminophen (Tylenol 325mg Tab) 650 mg PO Q4H PRN PRN Reason: Pain, Mild (1-3) Alprazolam (Xanax) 0.25 mg PO Q6 PRN; Protocol PRN Reason: Anxiety Stop: 05/23/17 00:01 Last Admin: 05/15/17 21:18 Dose: 0.25 mg Amlodipine Besylate (Norvasc) 10 mg PO DAILY [facility] Last Admin: 05/16/17 10:38 Dose: 10 mg Clonidine HCl (Catapres Tts1 0.1 Mg/24 Hr) 1 patch TD Q7D@1000 [facility] Last Admin: 05/16/17 11:44 Dose: 1 patch Gabapentin (Neurontin) 300 mg PO HS [facility] PRN Reason: Protocol Last Admin: 05/16/17 21:52 Dose: 300 mg Glipizide (Glucotrol) 5 mg PO DAILY [facility] Last Admin: 05/16/17 10:51 Dose: Not Given Hydralazine HCl (Apresoline) 10 mg PO Q6 PRN PRN Reason: Blood pressure Hydralazine HCl (Apresoline) 10 mg IVP Q6 PRN PRN Reason: for SBP>170 Insulin Human Regular (Humulin R Low) 0 units SC ACBD [facility] PRN Reason: Protocol Last Admin: 05/16/17 17:01 Dose: 2 units Levothyroxine Sodium (Synthroid) 100 mcg PO 0600 [facility] Last Admin: 05/16/17 05:35 Dose: 100 mcg Losartan Potassium (Cozaar) 100 mg PO DAILY [facility] Last Admin: 03/20/18 10:36 Dose: 100 mg Metoprolol Succinate (Toprol Xl) 50 mg PO DAILY [facility] Last Admin: 05/16/17 10:36 Dose: 50 mg Oxycodone/Acetaminophen (Percocet 5/325 Mg Tab) 1 tab PO Q4H PRN PRN Reason: Pain, moderate (4-7) Stop: 05/19/17 11:28 Last Admin: 05/16/17 11:44 Dose: 1 tab Polyethylene Glycol (Miralax) 17 gm PO BID [facility] Last Admin: 05/16/17 17:01 Dose: 17 gm - Labs Labs: 05/15/17 13:40 05/15/17 13:40 PT 12.4 SECONDS (9.4-12.5) 05/15/17 13:40 INR 1.08 (0.93-1.08) 05/15/17 13:40 APTT 29.6 Seconds (25.1-36.5) 05/15/17 13:40 - Constitutional Appears: Well, Non-toxic - Head Exam Head Exam: ATRAUMATIC, NORMAL INSPECTION, NORMOCEPHALIC - Eye Exam Eye Exam: Normal appearance - ENT Exam ENT Exam: Mucous Membranes Moist, Normal Exam - Neck Exam Additional comments: neck collar in place - Respiratory Exam Respiratory Exam: Clear to Ausculation Bilateral, NORMAL BREATHING PATTERN - Cardiovascular Exam Cardiovascular Exam: REGULAR RHYTHM, +S1, +S2 - Extremities Exam Extremities Exam: Normal Inspection - Back Exam Back Exam: NORMAL INSPECTION - Neurological Exam Neurological Exam: Alert, CN II-XII Intact, Normal Gait, Oriented x3 - Skin Skin Exam: Normal Color, Warm Assessment and Plan - Assessment and Plan (Free Text) Assessment: 1. 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 M protein IgG 0.3 gm/dl. Biopsy recommended during spinal surgery. Surgery planned for . 2. Pain controlled with current meds. ' 3. metastatic work up did not show any mass lesion. Skeletal survey negative for lytic lesions. 4. Renal : normal renal functions. 5. Continue Xanax for anxiety. 6. DC IVF .
[2017-05-17] MEDS: Levothyroxine 100 MCG TAB PO SCH (06:03)
--- NOTE | 2017-05-17 07:24 | CP.PCM.PN ---
Subjective - Date & Time of Evaluation Date of Evaluation: 05/17/17 Time of Evaluation: 06:20 - Subjective Subjective: Seen and examined by me and Dr. Talavera Reason for consult and follow up: cardiac evaluation for back surgery, pathological fracture- C4 lumbar surgery,history of diabetes,hypertension Subjective: denies chest pain, denies shortness of breath, surgery cancelled Objective - Vital Signs/Intake and Output Vital Signs (last 24 hours): Temp Pulse Resp BP Pulse Ox 97 F L 62 18 129/60 98 05/16/17 22:00 05/16/17 22:00 05/16/17 22:00 05/16/17 22:00 05/16/17 22:00 Intake and Output: 05/17/17 05/17/17 06:59 18:59 Intake Total 720 Balance 720 - Medications Medications: Current Medications Acetaminophen (Tylenol 325mg Tab) 650 mg PO Q4H PRN PRN Reason: Pain, Mild (1-3) Alprazolam (Xanax) 0.25 mg PO Q6 PRN; Protocol PRN Reason: Anxiety Stop: 05/23/17 00:01 Last Admin: 05/15/17 21:18 Dose: 0.25 mg Amlodipine Besylate (Norvasc) 10 mg PO DAILY [facility] Last Admin: 05/16/17 10:38 Dose: 10 mg Clonidine HCl (Catapres Tts1 0.1 Mg/24 Hr) 1 patch TD Q7D@1000 [facility] Last Admin: 05/16/17 11:44 Dose: 1 patch Gabapentin (Neurontin) 300 mg PO HS [facility] PRN Reason: Protocol Last Admin: 05/16/17 21:52 Dose: 300 mg Glipizide (Glucotrol) 5 mg PO DAILY [facility] Last Admin: 05/16/17 10:51 Dose: Not Given Hydralazine HCl (Apresoline) 10 mg PO Q6 PRN PRN Reason: Blood pressure Hydralazine HCl (Apresoline) 10 mg IVP Q6 PRN PRN Reason: for SBP>170 Insulin Human Regular (Humulin R Low) 0 units SC ACBD [facility] PRN Reason: Protocol Last Admin: 05/16/17 17:01 Dose: 2 units Levothyroxine Sodium (Synthroid) 100 mcg PO 0600 [facility] Last Admin: 05/17/17 06:03 Dose: 100 mcg Losartan Potassium (Cozaar) 100 mg PO DAILY [facility] Last Admin: 05/16/17 10:36 Dose: 100 mg Metoprolol Succinate (Toprol Xl) 50 mg PO DAILY [facility] Last Admin: 05/16/17 10:36 Dose: 50 mg Oxycodone/Acetaminophen (Percocet 5/325 Mg Tab) 1 tab PO Q4H PRN PRN Reason: Pain, moderate (4-7) Stop: 05/19/17 11:28 Last Admin: 05/16/17 11:44 Dose: 1 tab Polyethylene Glycol (Miralax) 17 gm PO BID [facility] Last Admin: 05/16/17 17:01 Dose: 17 gm - Labs Labs: 05/15/17 13:40 05/15/17 13:40 PT 12.4 SECONDS (9.4-12.5) 05/15/17 13:40 INR 1.08 (0.93-1.08) 05/15/17 13:40 APTT 29.6 Seconds (25.1-36.5) 05/15/17 13:40 - Constitutional Appears: Well, No Acute Distress - Head Exam Head Exam: NORMAL INSPECTION, NORMOCEPHALIC - ENT Exam ENT Exam: Mucous Membranes Moist - Neck Exam Additional comments: limited movement - Respiratory Exam Respiratory Exam: Clear to Ausculation Bilateral, NORMAL BREATHING PATTERN - Cardiovascular Exam Cardiovascular Exam: REGULAR RHYTHM, +S1, +S2 - GI/Abdominal Exam GI & Abdominal Exam: Soft, Normal Bowel Sounds - Extremities Exam Extremities Exam: Normal Capillary Refill - Neurological Exam Neurological Exam: Alert, Awake, Oriented x3 - Psychiatric Exam Psychiatric exam: Normal Affect, Normal Mood - Skin Skin Exam: Dry, Intact, Normal Color, Warm Assessment and Plan - Assessment and Plan (Free Text) Assessment: IMPRESSION: pathological fracture- C4 lumbar surgery,history of diabetes, hypertension,cardiac evaluation for surgery Plan: Back surgery postponed from yesterday,rescheduled for Moderate risk for surgery Cardiac status stable Continue current medications Blood pressure and heart rate stable Will follow up closely post operatively Plan and treatment discussed with Dr. Talavera
[2017-05-17] MEDS: Insulin Reg-LOW-Coverage SC SCH ×2 (07:43→16:06)
[2017-05-17] MEDS: Metoprolol Succinate 50 mg XL Tab PO SCH (09:46)
[2017-05-17] MEDS: POLYETHYLENE GLYCOL 3350 17 GM/Dose PACKET PO SCH ×2 (09:46→17:23)
--- NOTE | 2017-05-17 11:16 | PN ---
DATE: 05/17/2017 SUBJECTIVE: The patient has no complaints of any chest pain. No shortness of breath. She was not able to get procedure done yesterday because of a delay in the OR. PHYSICAL EXAMINATION: VITAL SIGNS: Temperature is 97.9, pulse is 72, blood pressure is 155/81, respiration is 18. GENERAL: The patient is lying in bed, flat, comfortable. HEENT: No oral lesion. Anicteric sclerae. Moist mucosa. NECK: No JVD, adenopathy, or thyromegaly. CARDIOVASCULAR: S1 and S2, regular. No murmurs, rubs, or gallops. LUNGS: Clear to auscultation bilaterally. No wheeze, rales, or rhonchi. ABDOMEN: Bowel sounds are positive, soft, nontender and nondistended. EXTREMITIES: No cyanosis, clubbing or edema. LABORATORY DATA: Creatinine is 0.8. ASSESSMENT: 1. C4 lytic lesion with pathologic and compression fracture. 2. Diabetes type 2. 3. Hypothyroidism. 4. Hypertension. 5. Hypercalcemia. 6. C7 vertebral lesion. PLAN: The patient has serum immunofixation that is positive. The patient clinically seems to have myeloma. The patient is going to be on clonidine for hypertension. The patient's blood pressure is better. The patient is going to be on losartan for her hypertension as well as she is going to continue with MiraLax for constipation. She is on Xanax as needed. She is on a heart healthy diet. Chilo Magallanes MD
[2017-05-17] MEDS: Oxycodone/Acetaminophen 5/325 mg Tab PO PRN (16:49)
--- NOTE | 2017-05-17 19:46 | CARD ---
APPROVED REPORT EXAM: Two-dimensional and M-mode echocardiogram with Doppler and color Doppler. INDICATION PRE-OP/LVFX 2D DIMENSIONS Left Atrium (2D)3.9 (1.6-4.0cm)IVSd1.1 (0.7-1.1cm) LVDd4.3 (3.9-5.9cm)PWd1.1 (0.7-1.1cm) LVDs2.8 (2.5-4.0cm)FS (%) 35.3 % LVEF (%)64.9 (>50%) M-Mode DIMENSIONS Aortic Root3.50 (2.2-3.7cm)Aortic Cusp Exc.1.90 (1.5-2.0cm) Aortic Valve AoV Peak Vnzdllso916.0cm/Christelle Peak GR.13mmHg Mitral Valve MV E Dyjaisxd23.2cm/sMV A Oufkelqf595.0cm/sE/A ratio0.8 TDI Lateral E' Peak V9.94cm/sMedial E' Peak V6.82cm/sE/Lateral E'8.9 E/Medial E'12.9 Pulmonary Valve PV Peak Aagtzqik396.0cm/sPV Peak Grad.5mmHg Tricuspid Valve TR Peak Bhnrjeke379zd/sRAP BAEVRSFN51cbBiDM Peak Gr.14mmHg [id number] LEFT VENTRICLE The left ventricle is normal size. There is normal left ventricular wall thickness. The left ventricular function is normal.EF-60-65% There is normal LV segmental wall motion. Transmitral Doppler flow pattern is Grade III-reversible restrictive diastolic dysfunction. No left ventricle thrombus noted on this study. There is no ventricular septal defect visualized. There is no left ventricular aneurysm. There is no mass noted in the left ventricle. RIGHT VENTRICLE The right ventricle is normal size. There is normal right ventricular wall thickness. The right ventricular systolic function is normal. ATRIA The left atrium size is normal. The right atrium size is normal. The interatrial septum is intact with no evidence for an atrial septal defect. AORTIC VALVE The aortic valve is thickened but opens well. No aortic regurgitation is present. There is no aortic valvular stenosis. There is no aortic valvular vegetation. MITRAL VALVE The mitral valve is thickened but opens well. Mitral regurgitation is trace. There is no mitral valve stenosis. There is no evidence of mitral valve prolapse. TRICUSPID VALVE The tricuspid valve leaflets are thickened , but open well. There is trace tricuspid regurgitation.RVSP-24 mmof Hg There is no tricuspid valve stenosis. There is no tricuspid valve prolapse or vegetation. PULMONIC VALVE The pulmonary valve is normal in structure. There is no pulmonic valvular regurgitation. There is no pulmonic valvular stenosis. GREAT VESSELS The aortic root is normal in size. The ascending aorta is normal in size. The pulmonary artery is normal. PERICARDIAL EFFUSION There is no pleural effusion. There is no pericardial effusion. <Conclusion> Normal Chamber Size. EF-60-65%. Trace MR/TR RVSP-24 mmof Hg.
[2017-05-18] MEDS: Levothyroxine 100 MCG TAB PO SCH (06:16)
[2017-05-18] MEDS: Insulin Reg-LOW-Coverage SC SCH (08:33)
[2017-05-18] MEDS: Metoprolol Succinate 50 mg XL Tab PO SCH (09:22)
[2017-05-18 09:38] LABS: HEMOGLOBIN 11.9 g/dL (12.0-16.0); MEAN CELL VOLUME 89.2 fl (80.0-105.0); MEAN CORPUSCULAR HEMOGLOBIN 29.2 pg (25.0-35.0); MEAN CORPUSCULAR HGB CONC 32.7 g/dl (31.0-37.0); MEAN PLATELET VOLUME 10.3 fl (7.0-11.0); RBC 4.08 10^6/uL (3.5-6.1); RED CELL DISTRIBUTION WIDTH 13.1 % (11.5-14.5); WHITE BLOOD COUNT 6.4 10^3/ul (4.5-11.0)
[2017-05-18 09:51] LABS: INR 1.03 (0.93-1.08); PROTHROMBIN TIME 11.9 SECONDS (9.4-12.5)
[2017-05-18 09:52] LABS: ALB/GLOB RATIO 1.2 (1.1-1.8); ALBUMIN 3.7 g/dL (3.0-4.8); ALT/SGPT 34 U/L (7-56); AST/SGOT 23 U/L (14-36); BLOOD UREA NITROGEN 22 mg/dL (7-21); CALCIUM 9.9 mg/dL (8.4-10.5); GFR AFRICAN-AMERICAN > 60; GFR NON-AFRICAN AMERICAN > 60
[2017-05-18] MEDS: POLYETHYLENE GLYCOL 3350 17 GM/Dose PACKET PO SCH (11:33)
[2017-05-18] MEDS ORDERED: Morphine 2 mg/ml ISec IVP STA (12:30)
[2017-05-18] MEDS ORDERED: Propofol 10 mg/ml Inj (20 ML) ONE (15:59)
[2017-05-18] MEDS ORDERED: Rocuronium 10 mg/ml (5 ml) ONE (16:03)
[2017-05-18] MEDS ORDERED: Remifentanil 2 MG PDS IV ONE (16:08)
[2017-05-18] MEDS ORDERED: Bacitracin Ointment 30 GM TUBE ONE (16:49)
[2017-05-18] MEDS ORDERED: Lidocaine 1% w Epi 1:100,000 Inj ONE (16:49)
[2017-05-18] MEDS ORDERED: Absorbable Gelatin Sponge Size 100 ONE (16:49)
[2017-05-18] MEDS ORDERED: Thrombin Topical 20,000 Intl Units Spray Kit TOP ONE ×2 (16:49→17:48)
--- NOTE | 2017-05-18 17:57 | CP.PCM.PN ---
Subjective - Date & Time of Evaluation Date of Evaluation: 05/18/17 Time of Evaluation: 17:56 - Subjective Subjective: surgy had to be cancelled secondary to contaminated equipment in or will resechedule Will possibly need to transfer to another institution to get this done in a timely manner Objective - Vital Signs/Intake and Output Vital Signs (last 24 hours): Temp Pulse Resp BP Pulse Ox 98.7 F 70 20 162/72 H 99 05/18/17 15:51 05/18/17 15:51 05/18/17 15:51 05/18/17 15:51 05/18/17 15:51 Intake and Output: 05/18/17 05/18/17 06:59 18:59 Intake Total 600 0 Balance 600 0 - Medications Medications: Current Medications Acetaminophen (Tylenol 325mg Tab) 650 mg PO Q4H PRN PRN Reason: Pain, Mild (1-3) Alprazolam (Xanax) 0.25 mg PO Q6 PRN; Protocol PRN Reason: Anxiety Stop: 05/23/17 00:01 Last Admin: 05/15/17 21:18 Dose: 0.25 mg Amlodipine Besylate (Norvasc) 10 mg PO DAILY [facility] Last Admin: 05/18/17 11:34 Dose: Not Given Clonidine HCl (Catapres Tts1 0.1 Mg/24 Hr) 1 patch TD Q7D@1000 [facility] Last Admin: 05/16/17 11:44 Dose: 1 patch Gabapentin (Neurontin) 300 mg PO HS [facility] PRN Reason: Protocol Last Admin: 05/17/17 21:54 Dose: 300 mg Glipizide (Glucotrol) 5 mg PO DAILY [facility] Last Admin: 05/18/17 11:33 Dose: Not Given Hydralazine HCl (Apresoline) 10 mg IVP Q6 PRN PRN Reason: for SBP>170 Insulin Human Regular (Humulin R Low) 0 units SC ACBD [facility] PRN Reason: Protocol Last Admin: 05/18/17 08:33 Dose: Not Given Levothyroxine Sodium (Synthroid) 100 mcg PO 0600 [facility] Last Admin: 05/18/17 06:16 Dose: 100 mcg Losartan Potassium (Cozaar) 100 mg PO DAILY [facility] Last Admin: 05/18/17 11:33 Dose: Not Given Metoprolol Succinate (Toprol Xl) 50 mg PO DAILY [facility] Last Admin: 05/18/17 09:22 Dose: 50 mg Oxycodone/Acetaminophen (Percocet 5/325 Mg Tab) 1 tab PO Q4H PRN PRN Reason: Pain, moderate (4-7) Stop: 05/19/17 11:28 Last Admin: 05/17/17 16:49 Dose: 1 tab Polyethylene Glycol (Miralax) 17 gm PO BID [facility] Last Admin: 05/18/17 11:33 Dose: Not Given - Labs Labs: 05/18/17 09:00 05/18/17 09:00 PT 11.9 SECONDS (9.4-12.5) 05/18/17 09:00 INR 1.03 (0.93-1.08) 05/18/17 09:00 APTT 30.0 Seconds (25.1-36.5) 05/18/17 09:00
[2017-05-18] MEDS: Oxycodone/Acetaminophen 5/325 mg Tab PO PRN (19:26)
--- NOTE | 2017-05-19 01:17 | PN ---
DATE: 05/18/2017 SUBJECTIVE: Ms. Bess is comfortable in bed, in no acute distress. Surgery was planned for today for spinal stabilization because of C4 fracture. Surgery could not be done today because of contamination of the instrument. Pain controlled with current medications. She also has lot of anxiety. Xanax was started yesterday helping with anxiety. at bedside and family member at bedside. REVIEW OF SYSTEMS: As per HPI. Rest of 12-point review of systems reviewed and negative. MEDICATIONS: Tylenol 650 every 4 hours p.r.n., Xanax 0.25 mg every 6 p.r.n. anxiety, Norvasc 10 mg daily, Catapres transdermal, gabapentin 300 p.o. at bedtime, glipizide 5 mg daily, hydralazine 10 mg every 6 hours p.r.n. for systolic pressure more than 170, Synthroid 100 mcg daily, Cozaar 100 mg daily, metoprolol 50 mg daily, Percocet p.r.n., MiraLax 17 g p.o. b.i.d. LABORATORY DATA: White count 6.4, hemoglobin 11.9, hematocrit 36.4, platelet 207. Sodium 144 , potassium 4.4, creatinine 0.9. PHYSICAL EXAMINATION: GENERAL: Comfortable in bed, in no acute distress. VITAL SIGNS: Temperature 98, heart rate is 84 per minute, blood pressure 160/70, respiratory rate 18 per minute, oxygen saturation 99% on room air. HEENT: No lymphadenopathy. CHEST: Air entry present and equal bilaterally. No added sound. CARDIOVASCULAR: S1 and S2 normal. No murmur. No gallop. ABDOMEN: Soft, nontender. No hepatosplenomegaly. EXTREMITIES: No edema. SKIN: No petechiae. SPINE: Nontender. ASSESSMENT: 1. 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 2. Neck pain. 3. Hypothyroidism. 4. Anxiety. PLAN: Discussed with Dr. Garcia. She will likely be transferred to [facility] for spinal surgery. Surgery could not be done at [facility] due to contamination of the instruments. Pain controlled with current medications. We will continue Xanax p.r.n. for anxiety, which is fairly controlled. She is also on gabapentin for neck pain. Discussed with Mr. about transfer to [facility] and Dr. Radha communicated that he spoke to the family and they are okay with transfer. We will await arrangements, which will be done by Dr. Garcia for surgery at [facility]. Sydnee Pearl MD
[2017-05-19 01:34] VITALS: O2SAT 99
[2017-05-19] MEDS: Levothyroxine 100 MCG TAB PO SCH (05:17)
--- NOTE | 2017-05-19 08:38 | PN ---
DATE: 05/18/2017 REASON FOR CONSULTATION AND FOLLOWUP: Preop evaluation, risk stratification for cervical spine surgery. SUBJECTIVE: Family is at the bedside. Scheduled for OR. No chest pain, no shortness of breath, no palpitation. OBJECTIVE: GENERAL: Not in apparent distress. VITAL SIGNS: Temperature afebrile, heart rate 85, blood pressure 145/88. HEENT: PERRLA. Extraocular muscles intact. NECK: Supple. No carotid bruit or thyromegaly. CHEST: Clear to auscultation. HEART: S1 and S2, regular. ABDOMEN: Soft. EXTREMITIES: Clubbing and cyanosis negative. LABORATORY DATA: Blood workup as follows: WBC 6.4, hemoglobin 11.8, hematocrit 36.4, platelet count 207. Chemistry shows sodium 141, potassium 4.4, chloride 106, carbon dioxide 28, anion gap of 12. BUN 22, creatinine 0.9. The patient had echocardiography done yesterday that shows normal chamber size, ejection fraction 60% to 65%, trace mitral regurgitation, trace tricuspid regurgitation, RV systolic pressure 24. IMPRESSION: Preoperative evaluation, risk stratification for cervical surgery, diabetes, hypertension, hyperlipidemia, pathological fracture of C4, impending paralysis. The patient is scheduled for surgery today. Discussed with the family, the patient is cleared comorbidity and we will clear her to go for surgery. No further workup is required because the patient needs surgery for the urgent basis, but for the risk stratification, this patient in 3 to 4 months surgery heals everything. Suggested stress test, discussed with the daughter, as outpatient in about 2 to 3 months. Interim, continue hydralazine, continue clonidine, continue amlodipine. We will follow with you. We will put IV hydralazine p.r.n. for systolic more than because the patient is going to be n.p.o. for systolic more than [address]. [address] Magallanes for providing us the opportunity in taking care of the patient, Shahriar. Yoko Talavera MD
[2017-05-19 08:42] VITALS: RESP 18; TEMP 98.2
[2017-05-19] MEDS: Insulin Reg-LOW-Coverage SC SCH (09:52)
[2017-05-19] MEDS: Metoprolol Succinate 50 mg XL Tab PO SCH (09:56)
[2017-05-19] MEDS: POLYETHYLENE GLYCOL 3350 17 GM/Dose PACKET PO SCH (09:57)
[2017-05-19 09:58] VITALS: BP 147/89; PULSE 80
--- NOTE | 2017-05-19 11:51 | PN ---
DATE: 05/19/2017 LOCATION: The patient is in the room 574, bed 1. REASON FOR CONSULTATION AND FOLLOWUP: Preoperative evaluation and risk stratification for cervical spine surgery. SUBJECTIVE: The patient lying flat in bed without chest pain, shortness of breath or palpitation. PHYSICAL EXAMINATION VITAL SIGNS: Blood pressure is 142/69, respirations 18, pulse 61, temperature 98.2. HEENT: Head is normocephalic. Eyes, pupils normal. Conjunctivae normal. Nose and throat normal. NECK: JVP low. Carotids equal. THORAX: AP diameter normal. LUNGS: Clear. CARDIOVASCULAR: S1 and S2. ABDOMEN: Soft, no tenderness, no organomegaly, bowel sounds normal. EXTREMITIES: No clubbing, no cyanosis. LABORATORY DATA: WBC 6.4, hemoglobin 11.9, hematocrit 36.4, platelets 207,000. Sodium 141, potassium 4.4, BUN 22, creatinine 0.9, sugar 144, total bilirubin 0.7. AST and ALT normal. Total protein 6.8, albumin 3.7. DIAGNOSES: Diabetes, hypertension, hyperlipidemia, pathological fracture of C4, impending paralysis. The patient is scheduled for surgery. PLAN: Clinically, the patient's cardiac status seems to be stable and we cannot do any stress test at this moment because of the urgency of her surgical intervention and clinically, cardiac status seems to be stable and the stress test can be done after the patient heals up from the cervical spine surgery. The patient can go as a moderate risk for cervical spine surgery and we will continue medications, which is clonidine 0.1 mg per 24-hour patch once a week, losartan 100 mg daily, glipizide 5 mg daily, Neurontin 300 mg p.o. at bedtime, amlodipine 10 mg daily, Synthroid 100 mcg p.o. daily, metoprolol succinate 50 mg daily and we will continue to follow with you. Yoko Gallegos MD
--- NOTE | 2017-05-20 02:06 | DS ---
DISCHARGE DIAGNOSES: 1. C1 fracture, possible plasmacytoma. 2. Neck pain. 3. Anxiety. 4. Hypothyroidism. HOSPITAL COURSE: The patient was admitted to the hospital with neck pain. MRI of the spine showed C4 fracture with infiltration of C4 vertebrae. Metastatic workup was done including CT chest, abdomen and pelvis, did not show any mass or lesion. Serum protein electrophoresis showed M protein at 0.3 g/dL IgG type. She was scheduled for spinal surgery at [facility] with Dr. Garcia, but could not be done in the OR. She is being transferred to [facility] for surgery at 02:30 p.m. today. She was evaluated by Neurology Dr. Germain and Neurosurgery Dr. Garcia during this hospitalization. PHYSICAL EXAMINATION ON DISCHARGE: GENERAL: Comfortable in bed, in no acute distress. VITAL SIGNS: Temperature 98.7, heart rate 75 per minute, blood pressure 110/70, respiratory rate 15 per minute, oxygen saturation 98% room air. HEENT: Neck in neck collar. CHEST: Air entry present and equal bilaterally. No added sounds. CARDIOVASCULAR: S1 and S2 normal. No murmur. No gallop. ABDOMEN: Soft, nontender. No hepatosplenomegaly. EXTREMITIES: No edema. SPINE: Nontender. SKIN: No petechiae. No rash. CONDITION ON DISCHARGE: Stable. DISPOSITION: Discharged to [facility] for spinal surgery today by Dr. Garcia. All records sent with the patient. Follow-up appointment given in 2 weeks in office. Condition discussed with the patient and the patient's daughter at bedside about the possibility of plasmacytoma. Metastatic disease solid cancer is less likely as preliminary workup including imaging has been negative. Discussed with Mr. PCP, and family member. Discussed with the staff nurse. Time spent in preparing discharge and coordinating care is 55 minutes. Sydnee Pearl MD
== END 2017-05-19 11:42 | disposition short-term general hospital (02) | DRG 552 ==
LOC: ED 15:06 → ERH 17:30 → 5RNO 20:39 → 5RSO 05-15 17:36
PROVIDERS: ADMIT Internal Medicine Nephrology; ATTEND Internal Medicine Nephrology
DX: S12.000A Unspecified displaced fracture of first cervical vertebra, initial encounter for closed fracture (principal); C90.30 Solitary plasmacytoma not having achieved remission; M48.52XA Collapsed vertebra, not elsewhere classified, cervical region, initial encounter for fracture; E83.52 Hypercalcemia; G83.9 Paralytic syndrome, unspecified; E03.9 Hypothyroidism, unspecified; E11.9 Type 2 diabetes mellitus without complications; E78.5 Hyperlipidemia, unspecified; F41.9 Anxiety disorder, unspecified; I10 Essential (primary) hypertension; Z79.899 Other long term (current) drug therapy; Z80.1 Family history of malignant neoplasm of trachea, bronchus and lung; Z90.49 Acquired absence of other specified parts of digestive tract; R40.2412 Glasgow coma scale score 13-15, at arrival to emergency department; Z53.8 Procedure and treatment not carried out for other reasons

== ENCOUNTER 2017-06-07 10:24 | Day surgery (SDC) | payer MEDICARE ==
[2017-05-31 12:22] VITALS: BMI 37.8
[2017-06-07 11:05] VITALS: TEMP 98
[2017-06-07] MEDS ORDERED: Lidocaine 1% Inj (20ml) ONE (11:57)
[2017-06-07] MEDS ORDERED: Propofol 10 mg/ml Inj (20 ML) ONE (11:58)
[2017-06-07] MEDS ORDERED: Midazolam 2 MG/2 ML VIAL ONE (11:59)
[2017-06-07] MEDS ORDERED: Lactated Ringer's 1,000 ML IV SCH (12:45)
[2017-06-07 13:24] VITALS: RESP 20
[2017-06-07 14:02] VITALS: BP 147/52; PULSE 70; O2SAT 98
== END 2017-06-07 14:45 | disposition home or self-care (01) ==
LOC: SDS 10:24
PROVIDERS: ATTEND Internal Medicine Medical Oncology
DX: C90.00 Multiple myeloma not having achieved remission (principal)
CPT/HCPCS: 38221; J2250; J2704; J3010; J7120 ×2

== ENCOUNTER 2017-07-04 11:06 | Day surgery (SDC) | payer MEDICARE ==
[2017-05-31 12:22] VITALS: BMI 37.8
[2017-07-04 11:42] LABS: BASO # 0.01 K/mm3 (0.0-2.0); BASO % 0.2 % (0.0-3.0); EOS # 0.1 (0.0-0.7); EOS % 1.4 % (1.5-5.0); GRAN # 3.42 (1.4-6.5); GRAN % 53.4 % (50.0-68.0); HEMOGLOBIN 11.2 g/dL (12.0-16.0); LYMPH # 2.4 (1.2-3.4); LYMPH % 37.3 % (22.0-35.0); MEAN CELL VOLUME 87.9 fl (80.0-105.0); MEAN CORPUSCULAR HEMOGLOBIN 28.7 pg (25.0-35.0); MEAN CORPUSCULAR HGB CONC 32.7 g/dl (31.0-37.0); MEAN PLATELET VOLUME 10.5 fl (7.0-11.0); MONO # 0.5 (0.1-0.6); MONO % 7.7 % (1.0-6.0); RBC 3.9 10^6/uL (3.5-6.1); RED CELL DISTRIBUTION WIDTH 12.9 % (11.5-14.5); WHITE BLOOD COUNT 6.4 10^3/ul (4.5-11.0)
[2017-07-04 11:54] LABS: BLOOD UREA NITROGEN 17 mg/dL (7-21); CALCIUM 9.4 mg/dL (8.4-10.5); GFR AFRICAN-AMERICAN > 60; GFR NON-AFRICAN AMERICAN > 60
[2017-07-04 12:02] LABS: INR 1.01 (0.93-1.08); PARTIAL THROMBOPLASTIN TIME 29.6 Seconds (25.1-36.5); PROTHROMBIN TIME 11.6 SECONDS (9.4-12.5)
[2017-07-04] MEDS ORDERED: Lidocaine 2% Inj (20ml) ONE (12:12)
[2017-07-04] MEDS ORDERED: Midazolam 2 MG/2 ML VIAL ONE ×3 (12:13→12:57)
[2017-07-04] MEDS ORDERED: Oxycodone/Acetaminophen 5/325 mg Tab PO PRN (14:02)
[2017-07-04] MEDS ORDERED: Sodium Chloride 0.45% 1,000 ML IV SCH (14:15)
[2017-07-04 14:30] VITALS: RESP 18; TEMP 98.1; O2SAT 96
[2017-07-04 15:03] VITALS: BP 154/50; PULSE 70
--- NOTE | 2017-07-04 15:04 | VASCULAR ---
PROCEDURE: Ultrasound and fluoroscopic right internal jugular venous access port. CLINICAL HISTORY: Multiple myeloma.Venous port for chemotherapy. PHYSICIAN(S): Caden Frias M.D. TECHNIQUE: The relative risks and indications of the procedure were explained to the patient and consent obtained. The patient was placed supine on the arteriogram table and the right neck and chest prepped and draped in the usual sterile fashion. Conscious sedation monitoring was provided throughout the procedure by a nurse. Antibiotics were given prior to the procedure. Under direct ultrasound guidance, the right internal jugular vein was punctured with a micro-puncture set. A 0.035 angled Glidewire was advanced into the IVC. A 4 cm incision was made below the right clavicle and the pocket blunted dissected. A 8 [place] single-lumen catheter, 24 cm long, was advanced to the SVC/RA junction. The catheter was trimmed and attached to the port. The port aspirates and injects easily. The port was placed in the pocket and closed in 2 layers. The patient tolerated the procedure well. IMPRESSION: Ultrasound and fluoroscopically placed right internal jugular venous access port.
== END 2017-07-04 15:30 | disposition home or self-care (01) ==
LOC: SDSVAS 11:06
PROVIDERS: ATTEND Radiology Vascular & Interventional Radiology
DX: C90.00 Multiple myeloma not having achieved remission (principal)
CPT/HCPCS: 36415; 36561; 76937; 77001; 80048; 85025; 85610; 85730; 99152; 99153; C1769; C1788; J0690; J1644; J2250; J2405; J3010; J7030 ×2